=== PATIENT | female | born 1995 | race African-American/Black ===

== ENCOUNTER 2021-04-30 11:06 | Emergency (ER) | payer OTHER ==
[2021-04-30] MEDS ORDERED: Dexamethasone 10 MG/ML VIAL ONE (12:16)
[2021-04-30] MEDS ORDERED: Ketorolac Tromethamine 30 MG/ML VIAL ONE (12:16)
== END 2021-04-30 12:37 | disposition home or self-care (01) ==
LOC: CSHERS 11:06
DX: J02.0 Streptococcal pharyngitis (principal)
CPT/HCPCS: 87430; 96372; 99284; J1100; J1885

== ENCOUNTER 2021-05-10 22:56 | Emergency (ER) | payer OTHER ==
[2021-05-11] MEDS ORDERED: Diazepam 5 MG TAB ONE (02:10)
[2021-05-11] MEDS ORDERED: Lidocaine 1% (PF) 30 ML VIAL ONE (02:10)
[2021-05-11] MEDS ORDERED: Ketorolac Tromethamine 30 MG/ML VIAL ONE (02:10)
== END 2021-05-11 03:21 | disposition home or self-care (01) ==
LOC: CSHERS 22:56
DX: L60.0 Ingrowing nail (principal); L03.031 Cellulitis of right toe
CPT/HCPCS: 11750; 96372; J1885; J2001

== ENCOUNTER 2021-06-01 12:58 | Emergency (ER) | payer OTHER ==
[2021-06-01] MEDS ORDERED: Ondansetron ODT 4 MG TAB ONE (14:55)
[2021-06-01] MEDS ORDERED: Ibuprofen 800 MG TAB ONE (14:56)
== END 2021-06-01 16:05 | disposition home or self-care (01) ==
LOC: CSHERS 12:58
DX: J11.1 Influenza due to unidentified influenza virus with other respiratory manifestations (principal)
CPT/HCPCS: 87804; 99283; Q0162

== ENCOUNTER 2021-08-15 14:50 | Emergency (ER) | payer OTHER ==
[2021-08-15] MEDS ORDERED: Ondansetron ODT 4 MG TAB ONE (16:36)
[2021-08-15] MEDS ORDERED: Lidocaine Viscous Sol 2% 15 ml UD Cup ONE (16:36)
[2021-08-15] MEDS ORDERED: Sucralfate 1 GM/10 ML UDCUP ONE (16:36)
[2021-08-15] MEDS ORDERED: Mag-Al Plus 1200 MG/1200 MG/120 MG/30 ML UDCUP ONE (16:36)
[2021-08-15 17:18] LABS: Bilirubin Neg (Negative); Blood, Urine 10 (Negative); Clarity Clear (Clear); Glucose, Urine (Dipstick) Normal (Negative); Ketone, Urine 15 mg/dL (Negative); Leukocyte 100 (Negative); Nitrite Negative (Negative); Protein, Urine (Dipstick) 15 mg/dl (Neg-Trace); pH, Urine 6.5 (5.0-9.0)
[2021-08-15 17:21] LABS: Pregnancy Test - Urine (BHCG) POSITIVE (Negative); Pregu Control Background? CLEAR/WHITE (CLR/WHITE); Pregu Control Bar Appear? YES (CONTROL BAR)
[2021-08-15 17:40] LABS: RBC/HPF 0-3 HPF (0-3)
[2021-08-15 17:41] LABS: Bacteria/HPF 1+ HPF (None Seen); Mucous/LPF 2+ LPF (<2+); Trichomonas/HPF Rare HPF (None Seen)
== END 2021-08-15 17:48 | disposition home or self-care (01) ==
LOC: CSHERS 14:50
DX: O21.9 Vomiting of pregnancy, unspecified (principal); O23.41 Unspecified infection of urinary tract in pregnancy, first trimester; N39.0 Urinary tract infection, site not specified; Z3A.00 Weeks of gestation of pregnancy not specified
CPT/HCPCS: 81003; 81015; 81025; 99284; Q0162

== ENCOUNTER 2022-02-09 13:20 | Day surgery (SDC) | payer OTHER ==
[2022-02-09 14:39] VITALS: BMI 36.0
[2022-02-09] MEDS ORDERED: hydrALAZINE 20 MG/ML VIAL SLOW IVP PRN (14:52)
== END 2022-02-09 17:10 | disposition home or self-care (01) ==
LOC: CSHLD/OP 13:20
PROVIDERS: ATTEND Family Medicine
DX: O26.893 Other specified pregnancy related conditions, third trimester (principal); M54.50 Low back pain, unspecified; O99.013 Anemia complicating pregnancy, third trimester; D64.9 Anemia, unspecified; Z3A.31 31 weeks gestation of pregnancy
CPT/HCPCS: 99282

== ENCOUNTER 2022-04-04 19:13 | Inpatient (IN) | payer OTHER ==
[~2022-04-04 19:13] MED LIST: Bupivacaine/Epinephrine 0.25% 30 ML VIAL ONE
[2022-04-04 19:38] VITALS: BMI 36.0
[2022-04-04] MEDS ORDERED: Lidocaine 1% (PF) 30 ML VIAL SC PRN (20:44)
[2022-04-04] MEDS ORDERED: Misoprostol 200 MCG TAB PR PRN (20:44)
[2022-04-04] MEDS ORDERED: Carboprost 250 MCG/ML AMP IM PRN (20:44)
[2022-04-04] MEDS ORDERED: Acetaminophen 500 MG TAB PO PRN (20:44)
[2022-04-04] MEDS ORDERED: hydrALAZINE 20 MG/ML VIAL SLOW IVP PRN (20:44)
[2022-04-04] MEDS ORDERED: Methylergonovine 0.2 MG/ML VIAL IM PRN (20:44)
[2022-04-04] MEDS ORDERED: Ibuprofen 800 MG TAB PO PRN (20:44)
[2022-04-04] MEDS ORDERED: Promethazine HCl 25 MG/ML VIAL IM PRN (20:44)
[2022-04-04] MEDS ORDERED: Diphenoxylate HCl/Atropine Tablet PO PRN (20:44)
[2022-04-04] MEDS ORDERED: Ondansetron PF 4 MG/2 ML Vial IVP PRN (20:44)
[2022-04-04] MEDS ORDERED: NS w/ Oxytocin 30 units 500 ML IV SCH ×2 (20:45)
[2022-04-04 20:56] LABS: Mean Corpuscular HGB CONC 32.4 g/dL (32.0-36.0); Mean Corpuscular Hemoglobin 25.8 pg (27.0-33.0); Mean Corpuscular Volume 79.7 fl (81.6-98.3); Mean Platelet Volume 11.2 fl (7.4-10.4); Platelet Count 269 10x3/uL (150-450); Red Blood Cell (RBC) Count 3.49 10x6/uL (3.90-5.03); White Blood Cell (WBC) Count 6.7 10x3/uL (3.5-10.5)
[2022-04-04] MEDS: Misoprostol 100 MCG TAB VAG SCH (21:10)
[2022-04-04 23:35] LABS: HBSAg Index 0.15 S/CO (0-0.99); Hep B Surf Ag Non-Reactive S/CO (NonReactive)
[2022-04-04 23:37] LABS: Syphilis Antibody Nonreactive (Nonreactive); Syphilis Antibody Index 0.37 S/CO (<1.00 Non-Reactive)
[2022-04-05] MEDS: Misoprostol 100 MCG TAB VAG SCH ×3 (01:17→18:08)
[2022-04-05] MEDS ORDERED: Fentanyl 2 mcg/Bup 0.1% Cadd 100 ML ONE (07:13)
[2022-04-05] MEDS ORDERED: Promethazine HCl 25 MG/ML VIAL IM PRN (07:18)
[2022-04-05] MEDS ORDERED: diphenhydrAMINE 50 MG/ML VIAL IVP PRN (07:18)
[2022-04-05] MEDS ORDERED: Ondansetron PF 4 MG/2 ML Vial IVP PRN ×2 (07:18→16:41)
[2022-04-05] MEDS ORDERED: Naloxone HCl 0.4 mg/ml Vial IVP PRN ×2 (07:18)
[2022-04-05] MEDS ORDERED: Lactated Ringer's 500 ML IV PRN (07:18)
[2022-04-05] MEDS ORDERED: ePHEDrine Sulfate 50 MG/10 ML VIAL SLOW IVP PRN (07:18)
[2022-04-05] MEDS ORDERED: Moisturizing Cream (Eucerin) 113 GM JAR TOP PRN (07:18)
[2022-04-05] MEDS ORDERED: Communication Order-Pharmacy FS SCH (07:30)
[2022-04-05] MEDS: Fentanyl 2 mcg/Bupivacaine 0.1% Cassette 100 ML EPIDURAL SCH ×2 (07:31→14:30)
[2022-04-05] MEDS: Lactated Ringer's 1,000 ML IV SCH ×3 (09:00→15:48)
[2022-04-05] MEDS ORDERED: Lactated Ringer's 1,000 ML IV SCH (09:45)
[2022-04-05] MEDS: Terbutaline Sulfate 1 MG/ML VIAL SC SCH ×3 (14:59→21:26)
[2022-04-05] MEDS ORDERED: PHENYLEPHRINE-NS 100 MCG/ML 10 ML SYRINGE ONE (15:17)
[2022-04-05] MEDS ORDERED: Oxytocin 10 UNITS/ML VIAL ONE (15:17)
[2022-04-05] MEDS ORDERED: Morphine PF 10 MG/10 ML VIAL ONE (15:17)
[2022-04-05] MEDS ORDERED: Misoprostol 200 MCG TAB ONE (16:34)
[2022-04-05] MEDS ORDERED: Milk Of Magnesia 30 ML UDCUP PO PRN (16:41)
[2022-04-05] MEDS ORDERED: hydrALAZINE 20 MG/ML VIAL SLOW IVP PRN (16:41)
[2022-04-05] MEDS ORDERED: Bisacodyl 10 MG SUPP PR PRN (16:41)
[2022-04-05] MEDS ORDERED: Boostrix 0.5 ML (Tdap) VIAL (>/=7 yrs of age) IM ONE (16:41)
[2022-04-05] MEDS ORDERED: Methylergonovine 0.2 MG/ML VIAL IM PRN (16:41)
[2022-04-05] MEDS ORDERED: Lanolin Ointment 7 GM TUBE TOP PRN (16:41)
[2022-04-05] MEDS ORDERED: Misoprostol 200 MCG TAB VAG PRN (16:41)
[2022-04-05] MEDS ORDERED: Preparation H Ointment 28 GM TUBE PR PRN (16:41)
[2022-04-05] MEDS ORDERED: NS w/ Oxytocin 30 units 500 ML IV SCH (16:45)
[2022-04-05] MEDS: Ferrous Sulfate 325 MG TAB PO SCH (18:09)
[2022-04-05 21:10] LABS: Hemoglobin 8.1 g/dL (12.0-15.5); Mean Corpuscular HGB CONC 31.9 g/dL (32.0-36.0); Mean Corpuscular Hemoglobin 25.6 pg (27.0-33.0); Mean Corpuscular Volume 80.4 fl (81.6-98.3); Mean Platelet Volume 10.3 fl (7.4-10.4); Platelet Count 198 10x3/uL (150-450); RBC Distribution Width 15.1 % (11.5-14.5); Red Blood Cell (RBC) Count 3.16 10x6/uL (3.90-5.03); White Blood Cell (WBC) Count 9.4 10x3/uL (3.5-10.5)
[2022-04-06] MEDS: Acetaminophen 325 MG TAB PO PRN ×2 (00:32→05:25)
[2022-04-06] MEDS: Docusate 100 MG CAP PO SCH ×2 (00:33→08:30)
[2022-04-06] MEDS: Ibuprofen 800 MG TAB PO SCH ×3 (00:33→16:22)
[2022-04-06 05:09] LABS: Hemoglobin 8.2 g/dL (12.0-15.5); Mean Corpuscular HGB CONC 31.7 g/dL (32.0-36.0); Mean Corpuscular Hemoglobin 25.9 pg (27.0-33.0); Mean Corpuscular Volume 81.7 fl (81.6-98.3); Platelet Count 221 10x3/uL (150-450); Red Blood Cell (RBC) Count 3.17 10x6/uL (3.90-5.03); White Blood Cell (WBC) Count 8.2 10x3/uL (3.5-10.5)
[2022-04-06] MEDS: Ferrous Sulfate 325 MG TAB PO SCH ×2 (08:30→16:22)
[2022-04-06] MEDS: Prenatal Vitamin 1 TAB PO SCH (08:30)
[2022-04-06] MEDS ORDERED: Simethicone Chewable 80 MG TAB PO PRN (11:33)
[2022-04-06] MEDS ORDERED: Cyclobenzaprine 10 MG TAB PO PRN (21:42)
[2022-04-07] MEDS: Ibuprofen 800 MG TAB PO SCH ×2 (01:16→10:26)
[2022-04-07] MEDS: Docusate 100 MG CAP PO SCH ×2 (04:12→08:16)
[2022-04-07] MEDS: Prenatal Vitamin 1 TAB PO SCH (08:16)
[2022-04-07] MEDS: Ferrous Sulfate 325 MG TAB PO SCH (08:16)
[2022-04-07] MEDS ORDERED: Polyethylene Glycol 3350 17 GM Packet PO SCH (09:00)
[2022-04-07] MEDS ORDERED: Iron, Sodium Ferric Gluconate 125 MG in Sodium Chloride 0.9% 100 ML IVPB SCH (10:15)
[2022-04-07 11:19] VITALS: BP 132/63; TEMP 98.5
== END 2022-04-07 13:26 | disposition home or self-care (01) | DRG 807 ==
LOC: CSHLD 19:13 → CSHPP 04-05 18:35
PROVIDERS: ADMIT Family Medicine; ATTEND Family Medicine
PROC: 10E0XZZ Delivery of Products of Conception, External Approach (ICD-10-PCS; principal; 2022-04-05)
PROC: 10907ZC Drainage of Amniotic Fluid, Therapeutic from Products of Conception, Via Natural or Artificial Opening (ICD-10-PCS; 2022-04-05)
PROC: 3E0P7VZ Introduction of Hormone into Female Reproductive, Via Natural or Artificial Opening (ICD-10-PCS; 2022-04-05)
PROC: 4A1HXCZ Monitoring of Products of Conception, Cardiac Rate, External Approach (ICD-10-PCS; 2022-04-05)
PROC: 10H07YZ Insertion of Other Device into Products of Conception, Via Natural or Artificial Opening (ICD-10-PCS; 2022-04-05)
PROC: 3E0E7GC Introduction of Other Therapeutic Substance into Products of Conception, Via Natural or Artificial Opening (ICD-10-PCS; 2022-04-05)
DX: O99.02 Anemia complicating childbirth (principal); Z37.0 Single live birth; O99.344 Other mental disorders complicating childbirth; F32.A Depression, unspecified; O36.8330 Maternal care for abnormalities of the fetal heart rate or rhythm, third trimester, not applicable or unspecified; Z3A.39 39 weeks gestation of pregnancy; O69.2XX0 Labor and delivery complicated by other cord entanglement, with compression, not applicable or unspecified; O99.214 Obesity complicating childbirth; D50.9 Iron deficiency anemia, unspecified; O73.0 Retained placenta without hemorrhage
CPT/HCPCS: 36415; 51702; 85027; 86780; 86850; 86900; 86901; 87340; 88307; J2274; J2405; J2590; J2916; J3105; J3490; J7120

== ENCOUNTER 2022-04-23 15:11 | Emergency (ER) | payer OTHER ==
[2022-04-23 16:13] LABS: #Monocytes 0.3 10x3/uL (0.0-1.1); #Neutrophils 3.6 10x3/uL (1.5-8.4); %Basophils 0.7 % (0.0-2.0); %Eosinophils 0.4 % (0.0-6.0); %Lymphocytes 30.2 % (18.0-47.0); %Monocytes 5.3 % (0.0-10.0); %Neutrophils 63.2 % (40.0-75.0); Mean Corpuscular HGB CONC 31.6 g/dL (32.0-36.0); Mean Corpuscular Hemoglobin 25.3 pg (27.0-33.0); Mean Corpuscular Volume 80.2 fl (81.6-98.3); Mean Platelet Volume 9.9 fl (7.4-10.4); Platelet Count 340 10x3/uL (150-450); RBC Distribution Width 14.6 % (11.5-14.5); Red Blood Cell (RBC) Count 4.34 10x6/uL (3.90-5.03); White Blood Cell (WBC) Count 5.7 10x3/uL (3.5-10.5)
[2022-04-23 16:19] LABS: ALT (SGPT) Less than 6 U/L (8-55); AST (SGOT) 10 U/L (5-34); Alkaline Phosphatase 71 U/L (40-110); Anion Gap 14 mmol/L (10-20); BUN (Urea Nitrogen) 6 mg/dL (7.0-18.7); Bilirubin, Total 0.6 mg/dL (0.2-1.2); Calc. Creatinine Clearance 0 mL/min (70-130); Calcium 9.4 mg/dL (7.8-10.44); Carbon Dioxide 25 mmol/L (22-29); Chloride 106 mmol/L (98-107); Estimated GFR 109; Globulin 4.1 g/dL (2.4-3.5); Glucose 97 mg/dL (70-105); Protein, Total 8.1 g/dL (6.0-8.3); Sodium 142 mmol/L (136-145)
[2022-04-23 18:02] LABS: Bilirubin 1+ (Negative); Blood, Urine 25 (Negative); Clarity Sl. Cloudy (Clear); Glucose, Urine (Dipstick) Normal (Negative); Ketone, Urine 5 mg/dL (Negative); Leukocyte 500 (Negative); Nitrite Negative (Negative); Protein, Urine (Dipstick) 30 mg/dl (Neg-Trace); pH, Urine 6.5 (5.0-9.0)
[2022-04-23 18:11] LABS: Bacteria/HPF 3+ HPF (None Seen); Mucous/LPF 4+ LPF (<2+); RBC/HPF 0-3 HPF (0-3); Squamous Epithelial 0-3 HPF (0-3); WBC/HPF 21-50 HPF (0-3)
[2022-04-23] MEDS ORDERED: Azithromycin 250 MG TAB ONE (19:34)
[2022-04-23] MEDS ORDERED: cefTRIAXone\\ROCEPHIN 1 GM VIAL ONE (19:35)
[2022-04-23] MEDS ORDERED: Lidocaine 1% PF 5 ML VIAL ONE (19:36)
[2022-04-23] MEDS ORDERED: Potassium Bicarbonate/Cit Ac 25 MEQ TAB PO SCH (20:00)
[2022-04-24 15:49] LABS: Chlamydia by PCR Not Detected (NotDetected); GC by PCR Not Detected (NotDetected)
== END 2022-04-23 20:00 | disposition home or self-care (01) ==
LOC: CSHERS 15:11
DX: O90.89 Other complications of the puerperium, not elsewhere classified (principal); N89.8 Other specified noninflammatory disorders of vagina; E87.6 Hypokalemia
CPT/HCPCS: 76856; 80053; 81003; 81015; 85025; 87480; 87491; 87510; 87591; 87660; 96372; J0696

== ENCOUNTER 2023-03-24 09:45 | Emergency (ER) | payer OTHER, SELFPAY ==
[2023-03-24] MEDS ORDERED: Dicyclomine 20 MG/2 ML VIAL ONE (10:34)
[2023-03-24] MEDS ORDERED: Ondansetron PF 4 MG/2 ML Vial ONE (10:34)
[2023-03-24] MEDS ORDERED: Famotidine/PF 20 mg/2ml Vial ONE (10:35)
[2023-03-24 10:56] LABS: Bilirubin Neg (Negative); Blood, Urine Negative (Negative); Clarity Clear (Clear); Glucose, Urine (Dipstick) Normal (Negative); Ketone, Urine Negative (Negative); Leukocyte 100 (Negative); Nitrite Negative (Negative); Protein, Urine (Dipstick) Negative (Neg-Trace); Specific Gravity, Urine 1.015 (1.005-1.030); Urobilinogen Normal mg/dL (Less than 2); pH, Urine 6.5 (5.0-9.0)
[2023-03-24 11:00] LABS: #Monocytes 0.4 10x3/uL (0.0-1.1); #Neutrophils 2.8 10x3/uL (1.5-8.4); %Basophils 0.6 % (0.0-2.0); %Eosinophils 0.8 % (0.0-6.0); %Lymphocytes 35.6 % (18.0-47.0); %Monocytes 7.8 % (0.0-10.0); Hemoglobin 10.9 g/dL (12.0-15.5); Mean Corpuscular HGB CONC 31.1 g/dL (32.0-36.0); Mean Corpuscular Hemoglobin 24.8 pg (27.0-33.0); Mean Corpuscular Volume 79.7 fl (81.6-98.3); Mean Platelet Volume 10.4 fl (7.4-10.4); Platelet Count 290 10x3/uL (150-450); RBC Distribution Width 14.6 % (11.5-14.5); Red Blood Cell (RBC) Count 4.39 10x6/uL (3.90-5.03)
[2023-03-24 11:03] LABS: Amphetamine Not Detected (NotDetected); Barbiturates Screen Not Detected (NotDetected); Benzodiazepine Screen Not Detected (NotDetected); Cocaine Metabolite Screen Not Detected (NotDetected); Methadone Not Detected (NotDetected); Methamphetamine Not Detected (NotDetected); Opiate Screen Not Detected (NotDetected); Oxycodone Screen Not Detected (NotDetected); Phencyclidine (PCP) Not Detected (NotDetected); THC/Cannabinoid Screen Not Detected (NotDetected); Tricyclic Screen Not Detected (NotDetected)
[2023-03-24 11:14] LABS: ALT (SGPT) 11 U/L (8-55); AST (SGOT) 16 U/L (5-34); Acetaminophen Less than 10 mcg/mL (10.0-30.0); Albumin 4.1 g/dL (3.5-5.0); Alcohol Less than 10.0 mg/dL (Less than 10); Alkaline Phosphatase 48 U/L (40-110); Anion Gap 12 mmol/L (10-20); BHCG - Serum Negative (NEGATIVE); BUN (Urea Nitrogen) 11 mg/dL (7.0-18.7); Bilirubin, Total 0.3 mg/dL (0.2-1.2); Calc. Creatinine Clearance 0 mL/min (70-130); Calcium 8.7 mg/dL (7.8-10.44); Carbon Dioxide 20 mmol/L (22-29); Chloride 108 mmol/L (98-107); Estimated GFR 114; Globulin 3.7 g/dL (2.4-3.5); Glucose 77 mg/dL (70-105); Lipase 22 U/L (8-78); Protein, Total 7.8 g/dL (6.0-8.3); Salicylate Less than 8.0 mg/dL (15.0-30.0); Sodium 136 mmol/L (136-145)
[2023-03-24 11:15] LABS: Pregs Control Background? CLEAR/WHITE (CLR/WHITE); Pregs Control Bar Appear? YES (CONTROL BAR)
[2023-03-24 11:30] LABS: Bacteria/HPF 1+ HPF (None Seen); CAUTI Indications for Culture Dysuria,urgency,freq; RBC/HPF 0-3 HPF (0-3)
[2023-03-24 11:31] LABS: Urine Culture Reflex No No
== END 2023-03-24 12:40 | disposition home or self-care (01) ==
LOC: CSHERS 09:45
DX: A08.4 Viral intestinal infection, unspecified (principal)
CPT/HCPCS: 80053; 80306; 80307; 81001; 83690; 83735; 84703; 85025; 96374; 96375; J2405; S0028

== ENCOUNTER 2023-03-29 19:08 | Emergency (ER) | payer SELFPAY ==
[2023-03-29] MEDS ORDERED: Acetaminophen 500 MG TAB ONE (19:42)
[2023-03-29 20:51] LABS: SARS-CoV-2 NAA Rapid Test Not Detected (NotDetected)
== END 2023-03-29 19:47 | disposition home or self-care (01) ==
LOC: CSHERS 19:08
DX: J06.9 Acute upper respiratory infection, unspecified (principal); Z20.822 Contact with and (suspected) exposure to COVID-19
CPT/HCPCS: 99283

== ENCOUNTER 2023-08-10 23:15 | Emergency (ER) | payer SELFPAY ==
[2023-08-11] MEDS ORDERED: HYDROcodone/Acetaminophen 5/325 mg Tablet ONE (00:06)
== END 2023-08-11 00:09 | disposition home or self-care (01) ==
LOC: CSHERS 23:15
DX: K02.9 Dental caries, unspecified (principal)
CPT/HCPCS: 99282

== ENCOUNTER 2023-09-06 13:23 | Emergency (ER) | payer SELFPAY ==
[2023-09-06] MEDS ORDERED: Acetaminophen 500 MG TAB ONE (15:42)
[2023-09-06 15:50] LABS: #Eosinphils 0.1 10x3/uL (0.0-0.5); #Monocytes 0.6 10x3/uL (0.0-1.1); %Basophils 0.5 % (0.0-2.0); %Eosinophils 1.2 % (0.0-6.0); %Lymphocytes 35.8 % (18.0-47.0); %Monocytes 8.1 % (0.0-10.0); Hematocrit 34.8 % (34.9-44.5); Hemoglobin 11.3 g/dL (12.0-15.5); Mean Corpuscular HGB CONC 32.5 g/dL (32.0-36.0); Mean Corpuscular Hemoglobin 25.3 pg (27.0-33.0); Platelet Count 336 10x3/uL (150-450); RBC Distribution Width 14.6 % (11.5-14.5); Red Blood Cell (RBC) Count 4.46 10x6/uL (3.90-5.03); White Blood Cell (WBC) Count 7.4 10x3/uL (3.5-10.5)
[2023-09-06] MEDS ORDERED: Ketorolac Tromethamine 30 MG (1 mL) VIAL ONE (16:35)
[2023-09-06] MEDS ORDERED: Ondansetron ODT 4 MG TAB ONE (18:08)
[2023-09-06 19:19] LABS: #Monocytes 0.6 10x3/uL (0.0-1.1); #Neutrophils 6.9 10x3/uL (1.5-8.4); %Basophils 0.4 % (0.0-2.0); %Eosinophils 0.3 % (0.0-6.0); %Lymphocytes 17.3 % (18.0-47.0); %Monocytes 6.1 % (0.0-10.0); %Neutrophils 75.7 % (40.0-75.0); Hematocrit 32.7 % (34.9-44.5); Hemoglobin 10.7 g/dL (12.0-15.5); Mean Corpuscular HGB CONC 32.7 g/dL (32.0-36.0); Mean Corpuscular Hemoglobin 25.5 pg (27.0-33.0); Mean Corpuscular Volume 77.9 fl (81.6-98.3); Mean Platelet Volume 10.1 fl (7.4-10.4); Platelet Count 283 10x3/uL (150-450); RBC Distribution Width 14.4 % (11.5-14.5); White Blood Cell (WBC) Count 9.1 10x3/uL (3.5-10.5)
== END 2023-09-06 21:35 | disposition home or self-care (01) ==
LOC: CSHERS 13:23
DX: N93.9 Abnormal uterine and vaginal bleeding, unspecified (principal); R10.9 Unspecified abdominal pain
CPT/HCPCS: 76856; 84702; 85025; 88305; 93005; 96372; J1885; Q0162